=== PATIENT | female | born 2000 ===

== ENCOUNTER 2023-07-28 02:06 | Inpatient (IN) | payer OTHER ==
[~2023-07-28] VITALS: Ht 175.3 cm; Wt 95.4 kg
[2023-07-28] VITALS (47 sets, daily range): BP systolic 89–144; BP diastolic 50–96
[2023-07-28] MEDS ORDERED: Acetaminophen 500 MG Tab PO PRN (03:55)
[2023-07-28] MEDS ORDERED: Lactated Ringer's 1,000 ML IV PRN (03:55)
[2023-07-28] MEDS ORDERED: Ondansetron HCl 2 MG / ML 2ML Vial IV PRN (03:55)
[2023-07-28] MEDS ORDERED: Calcium Carbonate 500 MG Tab Chew PO PRN (03:55)
[2023-07-28] MEDS ORDERED: LR Oxytocin 20 Units 1,000 ML IV SCH ×2 (03:55→17:35)
[2023-07-28] MEDS ORDERED: Lactated Ringer's 1,000 ML IV SCH ×3 (03:55→17:35)
[2023-07-28] MEDS ORDERED: FentaNYL Citrate 50 MCG/ML 2 ML Injection IV PRN (03:55)
[2023-07-28] MEDS ORDERED: Bupivacaine HCl 2.5 MG/ML 10ML P/F Injection XX SCH (03:55)
[2023-07-28] MEDS ORDERED: FentaNYL 2mcg/ml-Bup 0.1% Epd 250 ML EPI PRN (03:55)
[2023-07-28] MEDS ORDERED: Misoprostol 200 MCG Tab PR SCH (03:55)
[2023-07-28] MEDS ORDERED: ePHEDrine Sulfate 50 MG/ML 1ML Injection XX PRN (03:55)
[2023-07-28] MEDS ORDERED: Lidocaine HCl 1% 30 ML SDV XX SCH (03:55)
[2023-07-28] MEDS ORDERED: Castor Oil 59.146 ML BTL TOP SCH (03:55)
[2023-07-28] MEDS ORDERED: Oxytocin 10 Unit / ML Vial IM SCH (03:55)
[2023-07-28] MEDS ORDERED: Methylergonovine Maleate 0.2MG / ML 1ML Amp IM SCH (03:55)
[2023-07-28] MEDS ORDERED: Bupivacaine 0.5% HCl 5 MG/ML 30MLVIAL XX SCH (03:55)
[2023-07-28] MEDS ORDERED: PRENATAL TABLE1 EAC2 PO (04:14)
[2023-07-28 04:40] LABS: BASOPHILS ABSOLUTE AUTO 0.03 K/mm3 (0.00-0.23); BASOPHILS PERCENT AUTO 0 % (0-2); EOSINOPHILS ABSOLUTE AUTO 0.04 K/mm3 (0.00-0.68); EOSINOPHILS PERCENT AUTO 0 % (0-6); Hematocrit 36.3 % (33.0-51.0); Hemoglobin 12.7 g/dL (11.5-16.0); IMMATURE GRAN ABSOLUTE AUTO 0.08 K/mm3 (0.00-0.10); IMMATURE GRAN PERCENT AUTO 1 % (0-1); LYMPHOCYTES ABSOLUTE AUTO 1.55 K/mm3 (0.84-5.20); LYMPHOCYTES PERCENT AUTO 12 % (21-46); MONOCYTES ABSOLUTE AUTO 0.44 K/mm3 (0.16-1.47); MONOCYTES PERCENT AUTO 3 % (4-13); Mean Corpuscular HGB 30.1 pg (26.0-34.0); Mean Corpuscular Volume 86 fL (80-100); Mean Platelet Volume 10.2 fL (9.1-12.4); NEUTROPHILS ABSOLUTE AUTO 11.26 K/mm3 (1.96-9.15); NEUTROPHILS PERCENT AUTO 84 % (41-73); Platelet Count 270 K/mm3 (150-400); RDW Coefficient Variation 12.5 % (11.7-14.2); Red Blood Cell Count 4.22 M/mm3 (3.80-5.20)
[2023-07-28] MEDS ORDERED: Lactated Ringer's 1,000 ML IV ONE (13:14)
[2023-07-28] MEDS ORDERED: FLU VACC QS2023-24(6MOS UP)/PF 60 MCG/0.5 ML SYRINGE IM SCH (17:30)
[2023-07-28] MEDS ORDERED: Ibuprofen 400 MG Tab PO PRN (17:30)
[2023-07-28] MEDS ORDERED: Witch Hazel/Glycerin PADS TOP PRN (17:30)
[2023-07-28] MEDS ORDERED: Misoprostol 200 MCG Tab PO PRN (17:35)
[2023-07-28] MEDS ORDERED: Benzocaine Topical Anesthetic Spray 60GM TOP PRN (17:35)
[2023-07-28] MEDS ORDERED: Methylergonovine Maleate 0.2MG / ML 1ML Amp IM PRN (17:35)
[2023-07-28] MEDS ORDERED: Lanolin Cream TOP PRN (17:35)
[2023-07-28] MEDS ORDERED: OxyCODONE 5 mg/Acetamin 325 mg TABLET PO PRN (17:35)
[2023-07-28] MEDS ORDERED: Docusate Sodium 100 MG Cap PO PRN (17:40)
[2023-07-28] MEDS ORDERED: Diphth,Pertuss(Acell),Tet Vac 0.5 ML VIAL IM ONE (17:40)
[2023-07-28] MEDS ORDERED: Ketorolac Tromethamine 30mg Vial IV ONE (18:00)
[2023-07-28] MEDS ORDERED: Ketorolac Tromethamine 30mg Vial IV PRN (18:00)
[2023-07-29 00:40] VITALS: BP 102/58
[2023-07-29 04:32] VITALS: BP 105/68
[2023-07-29 06:24] LABS: Hematocrit 34.4 % (33.0-51.0); Hemoglobin 11.8 g/dL (11.5-16.0); Mean Corpuscular HGB 30.3 pg (26.0-34.0); Mean Corpuscular HGB Conc 34.3 g/dL (31.5-36.5); Mean Corpuscular Volume 88 fL (80-100); Mean Platelet Volume 10.1 fL (9.1-12.4); Platelet Count 222 K/mm3 (150-400); RDW Coefficient Variation 12.6 % (11.7-14.2); RDW Standard Deviation 40.6 fL (35.1-46.3); Red Blood Cell Count 3.89 M/mm3 (3.80-5.20)
[2023-07-29 08:42] VITALS: BP 122/75
[2023-07-29] MEDS ORDERED: Prenatal Vit/FE Fumarate/FA 1 Tab PO SCH (09:00)
[2023-07-29 12:27] VITALS: BP 112/59
[2023-07-29 17:55] VITALS: BP 123/58
--- NOTE | 2023-07-29 18:48 | NUR ---
PT DISCHARGED TO HOME. IV DC'D. INFANT TO F/U TOMORROW 07/30/23 @[address] AWAD FOR TCB. PT AND INFANT ALSO TO F/U TUESDAY 08/01 @1500 FOR PP F/U. DISCHARGE INSTRUCTIONS GIVEN. NO QUESTIONS OR CONCERNS AT THIS TIME. ADVISED TO CALL WITH ANY CONCERNS.
== END 2023-07-29 18:30 | disposition home or self-care (01) | DRG 807 ==
LOC: OBS 02:06 → BC 02:32 → OBS 03:47 → BC 03:49
PROVIDERS: ADMIT Advanced Practice Midwife
PROC: 10E0XZZ Delivery of Products of Conception, External Approach (ICD-10-PCS; principal; 2023-07-28)
PROC: 0KQM0ZZ Repair Perineum Muscle, Open Approach (ICD-10-PCS; 2023-07-28)
PROC: 10907ZC Drainage of Amniotic Fluid, Therapeutic from Products of Conception, Via Natural or Artificial Opening (ICD-10-PCS; 2023-07-28)
DX: O77.0 Labor and delivery complicated by meconium in amniotic fluid (principal); Z37.0 Single live birth; Z3A.39 39 weeks gestation of pregnancy; O70.1 Second degree perineal laceration during delivery
CPT/HCPCS: 36415; 51702; 59025; 85025; 85027; 86850; 86900; 86901; A9270; J1885; J2405; J2590; J3010; J7120